=== PATIENT | male | born 1970 | race Two or more races ===

== ENCOUNTER 2017-02-14 14:48 | Emergency (ER) | payer OTHER ==
[2017-02-14 15:26] VITALS: BP 124/86
[2017-02-14] MEDS ORDERED: Indomethacin CAP* 25 MG CAP PO ONE (16:04)
--- NOTE | 2017-02-14 17:00 | UC ---
Adelaide Mas Janilya, scribed for Lynn Nevarez DO on 02/14/17 at 1549 . Lower Extremity/Ankle HPI - HPI Summary HPI Summary: A 46 y/o male came in to [facility] presenting w/ a gradual onset of constant foot pain in the ball of right foot starting yesterday afternoon. Pt states the pain is gradually immobilizing the pt. He says he limped to the [facility]. Pt denies any recent foot injury. The most sensitive part of the foot is "top of the foot". Pt states it hurts to walk, to put pressure on the foot. Pt has been taking Ibuprofen and icing w/ mild alleviation. Pt reports erythema, edema. Pt denies fevers, chills, CP, SOB, urinary Sx, PMHx Lyme disease, joint pain and "arthritic pains throughout the years". - History of Current Complaint Chief Complaint: UCLowerExtremity Stated Complaint: FOOT PAIN Time Seen by Provider: 02/14/17 15:32 Hx Obtained From: Patient Onset/Duration: Gradual Onset, Lasting Days, Still Present Severity Initially: Moderate Severity Currently: Moderate Pain Intensity: 8 Pain Scale Used: 0-10 Numeric Aggravating Factor(s): Standing, Ambulation Alleviating Factor(s): Rest, Ice, OTC Meds - Ibuprofen Able to Bear Weight: No - Risk Factors Gout Risk Factors: Age Over 40, Male, Hypertension, Hyperlipidemia - Allergies/Home Medications Allergies/Adverse Reactions: Allergies Allergy/AdvReac Type Severity Reaction Status Date / Time No Known Allergies Allergy Verified 02/14/17 15:26 PMH/Surg Hx/FS Hx/Imm Hx Previously Healthy: Yes Endocrine History Of: Reports: Dyslipidemia Denies: Diabetes, Thyroid Disease Cardiovascular History Of: Reports: Hypertension Denies: Cardiac Disorders Respiratory History Of: Denies: COPD, Asthma GI/ History Of: Denies: Ulcer - Surgical History Surgical History: None - Family History Known Family History: Positive: Hypertension - mother Negative: Cardiac Disease, Diabetes - Social History Occupation: Employed Full-time Lives: With Family Alcohol Use: Occasionally Substance Use Type: None Smoking Status (MU): Former Smoker Review of Systems Constitutional: Negative Skin: Other - erythema of foot Eyes: Negative ENT: Negative Respiratory: Negative Cardiovascular: Negative Gastrointestinal: Negative Genitourinary: Negative Motor: Negative Neurovascular: Negative Musculoskeletal: Arthralgia - R foot pain, Myalgia - R foot pain Neurological: Negative Psychological: Negative All Other Systems Reviewed And Are Negative: Yes Physical Exam Triage Information Reviewed: Yes Appearance: Well-Appearing, No Pain Distress, Well-Nourished Vital Signs: Initial Vital Signs Temp 97.3 F 02/14/17 15:22 Pulse 71 02/14/17 15:22 Resp 18 02/14/17 15:22 BP 124/86 02/14/17 15:22 Pulse Ox 99 02/14/17 15:22 Vital Signs Reviewed: Yes Eyes: Positive: Conjunctiva Clear. Negative: Discharge ENT: Positive: Hearing grossly normal. Negative: Muffled/hoarse voice Neck: Positive: Supple, Nontender Respiratory: Positive: Lungs clear, Normal breath sounds, No respiratory distress, No accessory muscle use Cardiovascular: Positive: RRR, No Murmur Musculoskeletal: Positive: Strength Intact, ROM Intact, No Edema, Other: - Red, swollen MTP joint of great toe. no le edema or calf tenderness Neurological: Positive: Alert, Muscle Tone Normal Psychological Exam: Normal Psychological: Positive: Age Appropriate Behavior Skin Exam: Other - warm, dry, normal color Skin: Positive: Other - redness and swelling over mtp loint of great toe on rt Lower Extremity Course/Dx - Differential Dx/Diagnosis Differential Diagnosis/HQI/PQRI: Arthritis, Cellulitis, Gout, Septic Arthritis, Sprain Provider Diagnoses: gout Discharge - Discharge Plan Condition: Stable Disposition: HOME Prescriptions: Indomethacin CAP* [Indocin CAP*] 50 mg PO TID #30 cap Patient Education Materials: Low Purine Diet (ED), Gout (ED), Indomethacin (By mouth) Referrals: Teodoro Mckee MD [Primary Care Provider] - (follow up in 3-5 days) The documentation as recorded by the Adelaide quiroz Janilya accurately reflects the service I personally performed and the decisions made by , Lynn Nevarez DO.
[2017-02-14 18:26] LABS: Hematocrit 46 % (42-52); Hemoglobin 15.5 g/dl (14.0-18.0); Mean Corpuscular HGB Conc 33 g/dl (31-36); Mean Corpuscular Hemoglobin 28 pg (27-31); Mean Corpuscular Volume 85 fL (80-94); Mean Platelet Volume 8 um3 (7.4-10.4); Red Blood Count 5.49 10^6/ul (4.0-5.4); Red Cell Distribution Width 13 % (10.5-15); White Blood Count 7.7 10^3/ul (3.5-10.8)
[2017-02-14 18:36] LABS: Uric Acid 4.2 mg/dL (4.4-7.6)
[2017-02-14 19:41] LABS: Erythrocyte Sed Rate 9 mm/Hr (0-14)
--- NOTE | 2017-02-15 08:00 | UC ---
Progress - Progress Note Progress Note: Lab results: Normal WBC Low uric acid=4.2 average risk, crp: 1.06 results to Teodoro ELMORE. note by: Carlos Bonner MD February 15, 2017
== END 2017-02-14 16:15 | disposition home or self-care (01) ==
LOC: UCEAST 14:48
DX: M10.9 Gout, unspecified (principal); E78.5 Hyperlipidemia, unspecified; I10 Essential (primary) hypertension; Z87.891 Personal history of nicotine dependence
CPT/HCPCS: 36415; 84550; 85025; 85652; 86141; 99212; A9270-GY; G0463

== ENCOUNTER 2018-10-10 11:57 | Emergency (ER) | payer OTHER ==
[2018-10-10] MEDS ORDERED: Albuterol 2.5 MG/3 ML NEB.SOL* (0.083%) INH ONE ×2 (12:32→13:47)
--- NOTE | 2018-10-10 12:32 | UC ---
Respiratory Complaint HPI - HPI Summary HPI Summary: 48-year-old male presents with 10 day history of a progressively worsening cough and fever. Max fever of 101 F to 3 days ago. States one week ago he had a single episode of posttussive emesis. Reports moderate amount of yellow to green sputum. States cough is worse at night. Last 2 nights he has woken from sleep diaphoretic. Associated with fatigue, shortness of breath, wheezing , and pleuritic chest pain that it worsens with deep breath. Denies nasal congestion, ear pain, sore throat, abdominal pain, nausea, or diarrhea. - History of Current Complaint Chief Complaint: UCGeneralIllness Stated Complaint: COUGH, CHEST CONGESTION Time Seen by Provider: 10/10/18 12:24 Hx Obtained From: Patient Pain Intensity: 6 - Allergies/Home Medications Allergies/Adverse Reactions: Allergies Allergy/AdvReac Type Severity Reaction Status Date / Time No Known Allergies Allergy Verified 10/10/18 12:06 Home Medications: Home Medications Acetaminophen [APAP] 325 mg PO 10/10/18 [History] Guaifenesin/Dextromethorphan [Cough-Chest Congestion Dm Liq] 177 ml PO 10/10/18 [History] PMH/Surg Hx/FS Hx/Imm Hx Previously Healthy: Yes - Denies significant PMH - Surgical History Surgical History: Yes Surgery Procedure, Year, and Place: WISDOM TEETH - Family History Known Family History: Positive: Hypertension - mother - Social History Occupation: Employed Full-time Lives: With Family Alcohol Use: Daily Alcohol Amount: 1 drink daily Substance Use Type: None Smoking Status (MU): Former Smoker When Did the Patient Quit Smoking/Using Tobacco: 1994 Review of Systems All Other Systems Reviewed And Are Negative: Yes Constitutional: Positive: Fever, Fatigue Eyes: Negative: Drainage, Eye Redness ENT: Negative: Sore Throat, Ear Ache, Nasal Discharge, Sinus Congestion, Sinus Pain/Tenderness Respiratory: Positive: Shortness Of Breath, Cough, Other - Wheezing Cardiovascular: Negative: Palpitations, Chest Pain Gastrointestinal: Positive: Vomiting. Negative: Abdominal Pain, Diarrhea, Nausea Is Patient Immunocompromised?: No Physical Exam - Summary Physical Exam Summary: GENERAL APPEARANCE: Well developed, well nourished, alert and cooperative, and appears to be in no acute distress. EYES: Conjunctiva clear. No discharge. Vision is grossly intact. EARS: External auditory canals and tympanic membranes clear, hearing grossly intact. NOSE: No nasal congestion or discharge. THROAT: Oral cavity and pharynx normal. No inflammation, swelling, exudate, or lesions. Teeth and gingiva in good general condition. NECK: Neck supple, non-tender without lymphadenopathy. CARDIAC: Normal S1 and S2. No S3, S4 or murmurs. Rhythm is regular. There is no peripheral edema, cyanosis or pallor. Extremities are warm and well perfused. Capillary refill is less than 2 seconds. LUNGS: Bilateral diffuse wheezes. Harsh, bronchospastic cough. ABDOMEN: Positive bowel sounds. Soft, nondistended, nontender. No guarding or rebound. No masses or hepatosplenomegally. SKIN: Skin normal color, texture and turgor with no lesions or eruptions. Triage Information Reviewed: Yes Vital Signs: Initial Vital Signs Temp 98.5 F 10/10/18 12:03 Pulse 89 10/10/18 12:03 Resp 18 10/10/18 12:03 BP 117/73 10/10/18 12:03 Pulse Ox 97 10/10/18 12:03 Vital Signs Reviewed: Yes Diagnostic Evaluation - Laboratory O2 Sat by Pulse Oximetry: 97 - Radiology Radiology Interpretation Completed By: ED Physician - Possible LLL pneumonia, Radiologist Summary of Radiographic Findings: Patient Name: ANNETTE HOWARD . Ordering Physician: Farhan García NP Acct.#: [id number]. : 1970 Age: 48 Sex: M Location: [facility]. Exam Date: 10/10/18 1232 ADM Status: REG ER. Order Information: CHEST PA LAT 2 VWS. Accession Number: [id number]. CPT: 20634. Indication: Cough, wheezing. 2 views of the chest including dual energy PA views demonstrates no mediastinal shift. Heart is normal size and configuration. Lungs are clear. No changes noted since April 11, 2008. IMPRESSION: No active cardiopulmonary disease is noted. Re-Evaluation - Re-Evaluation First Eval Re-Evaluation Time: 13:30 Comment: Post-nebulizer treatment patient reports mild improvement in shortness of breath and cough. Continues to have diffuse wheezes bilaterally. Will repeat nebulizer treatment pending reading of CXR. Second Eval Re-Evaluation Time: 14:05 Change: Improved - Patient reports breathing improved. Continues to have some mild bilateral diffuse wheezes but air exchange much improved. VSS. Respiratory Course/Dx - Course Course Of Treatment: 48-year-old male presents with 10 day history of a progressively worsening cough and fever. Max fever of 101 F to 3 days ago. States one week ago he had a single episode of posttussive emesis. Reports moderate amount of yellow to green sputum. States cough is worse at night. Last 2 nights he has woken from sleep diaphoretic. Associated with fatigue, shortness of breath, wheezing, and pleuritic chest pain that it worsens with deep breath. Denies nasal congestion, ear pain, sore throat, abdominal pain, nausea, or diarrhea. Afebrile. VSS. Exam reveals no acute respiratory distress, bilateral diffuse wheezing, and a bronchospastic cough. He was given nebulizer treatment x 2 with improvement in symptoms. CXR read as no acute cardiopulmonary pathology however I have a clinical concern that there may be an early pneumonia with RAD. Will treat with course of azithromycin, prednisone 40 mg BID x 5 days, and albuterol inhaler Q4-6 hours PRN. He is to follow up with his PCP within 5 days for recheck of symptoms. Warning symptoms were reviewed with patient. Verbalizes understanding and agrees with POC. - Differential Dx/Diagnosis Differential Diagnosis/HQI/PQRI: Bronchitis, Lower Resp Infection, Sinusitis Provider Diagnosis: LLL pneumonia Discharge - Sign-Out/Discharge Documenting (check all that apply): Patient Departure All imaging exams completed and their final reports reviewed: Yes - Discharge Plan Condition: Stable Disposition: HOME Prescriptions: Albuterol HFA INHALER* [Ventolin HFA Inhaler*] 2 puff INH Q4H PRN #1 mdi PRN Reason: Sob/Wheezing Azithromyxin MYRON (NF) [Z-Myron (Zithromax) 250 mg tabs #6] 2 tab PO .TODAY, THEN 1 DAILY #6 tab predniSONE TAB* [Deltasone 20 MG TAB*] 40 mg PO DAILY #10 tab Patient Education Materials: Pneumonia (ED) Referrals: Teodoro Mckee MD [Primary Care Provider] - 5 Days Additional Instructions: Your x-ray in the office today did not show evidence of pneumonia but clinically I have a concern for this and will treat you with an antibiotic. Take azithromycin 2 tabs today then 1 tab a day for next 4 days. Start prednisone 40 mg (2 tab) daily for 5 days to help with the inflammation in your airways that is causing the wheezing. Use albutrerol inhaler 2 puffs every 4-6 hours as need for shortness of breath or wheezing. Follow up with your primary care provider in 5 days for recheck of symptoms. Call first thing Friday morning. Seek immediate medical attention in the emergency room if you have a persistent fever, worsening shortness of breath, chest pain, or any worsening of symptoms. - Billing Disposition and Condition Condition: STABLE Disposition: Home
[2018-10-10 14:07] VITALS: BP 127/70
== END 2018-10-10 14:21 | disposition home or self-care (01) ==
LOC: UCEAST 11:57
DX: J18.9 Pneumonia, unspecified organism (principal); Z87.891 Personal history of nicotine dependence
CPT/HCPCS: 71046; 99212; G0463